=== PATIENT | female | born 1955 | race African-American/Black ===

== ENCOUNTER → 2023-10-14 15:07 | Outpatient (REF) | payer MEDICARE, SELFPAY | LOC: HWWDC 15:07 | PROVIDERS: ATTENDING PHYSICIAN Obstetrics & Gynecology Gynecology; FAMILY PHYSICIAN Family Medicine | DX: Z12.31 Encounter for screening mammogram for malignant neoplasm of breast (principal) | CPT/HCPCS: 77063; 77067 ==

== ENCOUNTER → 2024-12-06 11:47 | Outpatient (REF) | payer MEDICARE, SELFPAY | LOC: HWWDC 11:47 | PROVIDERS: ATTENDING PHYSICIAN Family Medicine | DX: Z12.31 Encounter for screening mammogram for malignant neoplasm of breast (principal) | CPT/HCPCS: 77063; 77067 ==

== ENCOUNTER → 2025-06-12 12:06 | Outpatient (REF) | payer MEDICARE, SELFPAY ==
[2025-06-12 15:52] LABS: Blood Urea Nitrogen 21 mg/dl (7-17); Calcium 9.9 mg/dl (8.4-10.2); Carbon Dioxide 26 mmol/L (22-30); Chloride 108 mmol/L (98-107); Glucose 91 mg/dl (70-99); Potassium 4.1 mmol/L (3.5-5.1); Sodium 141 mmol/L (135-145); eGFR > 60.00
== END ==
LOC: HWLAB 12:06
DX: R10.84 Generalized abdominal pain (principal)
CPT/HCPCS: 36415; 80048

== ENCOUNTER → 2025-06-14 13:59 | Outpatient (REF) | payer MEDICARE, SELFPAY | LOC: RAD 13:59 | DX: R10.84 Generalized abdominal pain (principal) | CPT/HCPCS: 74178; Q9967 ==